=== PATIENT | male | born 1975 | race Caucasian/White ===

== ENCOUNTER 2017-12-27 06:03 | Emergency (ER) | payer BC, SELFPAY ==
[2017-12-27 07:11] LABS: #Eosinphils 0.1 thou/uL (0.0-0.7); #Monocytes 0.6 thou/uL (0.11-0.59); #Neutrophils 5.8 thou/uL (1.40-6.50); %Basophils 0.4 % (0.0-1.0); %Eosinophils 0.8 % (0.0-10.0); %Monocytes 7.8 % (0.0-10.0); %Neutrophils 77.1 % (42.0-75.0); Hemoglobin 15.4 g/dL (14.0-18.0); Mean Corpuscular HGB CONC 32.3 g/dL (32.0-36.0); Mean Corpuscular Hemoglobin 29.3 pg (27.0-31.0); Mean Corpuscular Volume 90.5 fL (78.0-98.0); Mean Platelet Volume 7.3 fL (7.4-10.4); Platelet Count 227 thou/uL (130-400); RBC Distribution Width 11.6 % (11.5-14.5); Red Blood Cell (RBC) Count 5.25 mill/uL (4.70-6.10); White Blood Cell (WBC) Count 7.5 thou/uL (4.8-10.8)
[2017-12-27 07:33] LABS: ALT (SGPT) 34 U/L (8-55); AST (SGOT) 29 U/L (5-34); Albumin 4.1 g/dL (3.5-5.0); Alkaline Phosphatase 138 U/L (40-150); Anion Gap 10 mmol/L (10-20); BUN (Urea Nitrogen) 13 mg/dL (8.9-20.6); Bilirubin, Total 0.5 mg/dL (0.2-1.2); Calc. Creatinine Clearance 0 mL/min (70-130); Calcium 9.2 mg/dL (7.8-10.44); Carbon Dioxide 28 mmol/L (22-29); Chloride 106 mmol/L (98-107); Estimated GFR-MDRD 69; Glucose 123 mg/dL (70-105); Potassium 4.5 mmol/L (3.5-5.1); Protein, Total 7.1 g/dL (6.0-8.3); Sodium 139 mmol/L (136-145)
[2017-12-27] MEDS ORDERED: Bupivacaine 0.25% 10 ML VIAL ONE (08:11)
[2017-12-27] MEDS ORDERED: Ketorolac Tromethamine 30 MG/ML VIAL ONE (08:11)
[2017-12-27] MEDS ORDERED: Clindamycin/D5W 900 mg/50 ml Premix Bag ONE (09:11)
--- NOTE | 2017-12-27 09:17 | CT ---
CT FACIAL BONES WITH CONTRAST: Date: 12/27/17 HISTORY: Left-sided facial swelling. Pain. Evaluate for abscess. COMPARISON: None. TECHNIQUE: Postcontrast facial bones CT is performed in the axial plane. Reformatted images are submitted. FINDINGS: Visualized brain parenchyma is unremarkable. Bilateral ocular lenses are appropriately located. Both globes are intact. Retrobulbar fat is preserved. Symmetric attenuation of the optic nerves and ocula r rectus muscles. Adequate aeration of the sinuses and mastoid air cells. Old right orbital floor fracture is noted. Ac kassidy fractures are not identified. Mandible and maxilla are intact. Visualized cervical spine is intac t. There is induration of the left facial soft tissues starting at the level of the left nasal soft tiss ues/preseptal space extending inferiorly to the level of the left mandible. There is no evidence of a n associated abscess or drainable fluid collection. No evidence of associated lymphadenopathy. There is symmetric enhancement and attenuation of the muscles of mastication. There is a metallic density associated with the anteriormost left mandibular molar tooth. Location is atypical for a metallic filling. Correlate clinically. IMPRESSION: 1. Induration and swelling involving the left facial soft tissues as described above. No evidence of a drainable fluid collection/abscess. 2. Metallic foreign body in the left mandibular molar tooth as described above. POS: [facility]
== END 2017-12-27 10:05 | disposition home or self-care (01) ==
LOC: ERS 06:03
DX: K04.7 Periapical abscess without sinus (principal); K12.2 Cellulitis and abscess of mouth; Z71.6 Tobacco abuse counseling; I10 Essential (primary) hypertension; F17.210 Nicotine dependence, cigarettes, uncomplicated; Z79.1 Long term (current) use of non-steroidal anti-inflammatories (NSAID)
CPT/HCPCS: 70487; 80053; 85025; 96361; 96365; 96375; 99406; J1885; J3490; S0020